=== PATIENT | female | born 1970 | race Caucasian/White ===

== ENCOUNTER 2019-01-21 07:59 | Inpatient (IN) | payer OTHER ==
[~2019-01-21] VITALS: Ht 162.6 cm; Wt 93.4 kg
[~2019-01-21 07:59] MED LIST: FLUT1AER3 IH; MEDR10TA10 PO
[2019-01-21] MEDS ORDERED: LevALBUTEROL HCL 1.25 MG/0.5 ML *CONC.* VIAL.NEB (XOPENEX CONC.) INH ONE ×2 (09:30→09:49)
[2019-01-21] MEDS ORDERED: LR 1,000 ML IV SCH (11:47)
[2019-01-21] MEDS ORDERED: MEPERIDINE HCL/PF 25 MG/ML DISP.SYRIN IVP PRN (12:00)
[2019-01-21] MEDS ORDERED: HYDROmorphone 2 MG/ML VIAL IVP PRN ×2 (12:00)
[2019-01-21] MEDS ORDERED: ONDANSETRON HCL 4 MG/2 ML VIAL IVP PRN (13:45)
[2019-01-21] MEDS ORDERED: ROCURONIUM BROMIDE 10 MG/ML (ZEMURON) ONE (14:05)
[2019-01-21] MEDS ORDERED: NS IRRIG SOLN 1000 ML IR ONE (14:05)
[2019-01-21] MEDS ORDERED: fentaNYL CITRATE 250 MCG/5 ML AMP ONE (14:05)
[2019-01-21] MEDS ORDERED: LR 1,000 ML IV.SOLN IV ONE (14:05)
[2019-01-21] MEDS ORDERED: ONDANSETRON HCL 4 MG/2 ML VIAL ONE ×2 (14:05→14:28)
[2019-01-21] MEDS ORDERED: MIDAZOLAM HCL 5 MG/ML VIAL (VERSED) IV ONE (14:05)
[2019-01-21] MEDS ORDERED: DEXAMETHASONE SOD PHOSPHATE 4 MG/ML VIAL ONE (14:05)
[2019-01-21] MEDS ORDERED: WATER FOR IRRIGATION,STERILE 1,000 ML IRRIG.SOLN IR ONE (14:05)
[2019-01-21] MEDS ORDERED: CEFAZOLIN 2 GM IVPB PREMIX 50 ML IV ONE (14:05)
[2019-01-21] MEDS ORDERED: WATER FOR IRRIGATION,STERILE 4,000 ML IRRIG.SOLN IR ONE (14:05)
[2019-01-21] MEDS ORDERED: PROPOFOL 200MG/ 20ML VIAL (DIPRIVAN) IV ONE (14:05)
[2019-01-21] MEDS ORDERED: KETOROLAC TROMETHAMINE 30 MG VIAL ONE (14:05)
[2019-01-21] MEDS ORDERED: ROPIVACAINE HCL/PF 5 MG/ML 0.5% 30 ML VIAL ONE (14:05)
[2019-01-21] MEDS ORDERED: fentaNYL CITRATE/PF 100 MCG/2 ML AMP ONE (14:05)
[2019-01-21] MEDS ORDERED: SEVOFLURANE 15 MIN GAS INH ONE (14:05)
[2019-01-21] MEDS: HYDROmorphone 1 MG INJ. 1 MG/ML AMPUL IVP PRN ×2 (14:20→14:30)
[2019-01-21] MEDS ORDERED: HYDROmorphone 1 MG INJ. 1 MG/ML AMPUL ONE ×2 (14:29→14:44)
[2019-01-21 15:15] VITALS: BP_SYST 144
[2019-01-21] MEDS: LR 1,000 ML IV SCH ×2 (15:26→19:49)
[2019-01-21] MEDS: IBUPROFEN 800 MG TABLET PO PRN (15:46)
[2019-01-21 16:47] VITALS: BP_SYST 151
[2019-01-21 19:52] VITALS: BP_SYST 143
[2019-01-21] MEDS: OXYCODONE/ACETAMINOPHEN 5-325 TABLET PO PRN (20:58)
[2019-01-21] MEDS: SIMETHICONE 80 MG TAB.CHEW PO PRN (20:58)
[2019-01-21] MEDS ORDERED: TEMAZEPAM 15 MG CAPSULE PO PRN (21:00)
[2019-01-21] MEDS ORDERED: SENNOSIDES/DOCUSATE SODIUM 1 TAB TABLET(SENOKOT-S) PO PRN ×2 (21:00)
[2019-01-22 00:29] VITALS: BP_SYST 155
[2019-01-22] MEDS: OXYCODONE/ACETAMINOPHEN 5-325 TABLET PO PRN ×3 (03:19→22:30)
[2019-01-22] MEDS: SIMETHICONE 80 MG TAB.CHEW PO PRN ×4 (03:20→22:30)
[2019-01-22] MEDS: LR 1,000 ML IV SCH ×2 (03:21→13:00)
[2019-01-22 06:29] LABS: HEMATOCRIT 28.6 % (36-48); HEMOGLOBIN 9.2 g/dL (12.0-16.0)
[2019-01-22 08:00] VITALS: BP_SYST 144
[2019-01-22 12:00] VITALS: BP_SYST 151
[2019-01-22 16:00] VITALS: BP_SYST 153
[2019-01-22 20:00] VITALS: BP_SYST 163
[2019-01-22] MEDS ORDERED: BISACODYL 10 MG/SUPPOSITORY RC ONE ×2 (22:18→22:44)
[2019-01-23 00:11] VITALS: BP_SYST 116
[2019-01-23] MEDS: OXYCODONE/ACETAMINOPHEN 5-325 TABLET PO PRN (02:52)
[2019-01-23] MEDS: BISACODYL 10 MG/SUPPOSITORY RC PRN ×2 (02:52→08:47)
[2019-01-23] MEDS: SIMETHICONE 80 MG TAB.CHEW PO PRN ×4 (02:52→17:12)
[2019-01-23 07:53] VITALS: BP_SYST 144
[2019-01-23] MEDS: IBUPROFEN 800 MG TABLET PO PRN ×2 (08:47→17:12)
[2019-01-23 11:37] VITALS: BP_SYST 142
[2019-01-23 15:49] VITALS: BP_SYST 129
[2019-01-23 17:52] VITALS: BP_SYST 139
== END 2019-01-23 18:25 | disposition home or self-care (01) | DRG 670 ==
LOC: SMU 07:59 → EDSTATUS 10:00 → SMU 15:29
PROVIDERS: ADMIT Obstetrics & Gynecology; ATTEND Urology Female Pelvic Medicine and Reconstructive Surgery
PROC: 0UT90ZZ Resection of Uterus, Open Approach (ICD-10-PCS; 2019-01-21)
PROC: 0T9B40Z Drainage of Bladder with Drainage Device, Percutaneous Endoscopic Approach (ICD-10-PCS; 2019-01-21)
PROC: 0UB50ZZ Excision of Right Fallopian Tube, Open Approach (ICD-10-PCS; 2019-01-21)
PROC: 0UB10ZZ Excision of Left Ovary, Open Approach (ICD-10-PCS; 2019-01-21)
PROC: 0TBB8ZX Excision of Bladder, Via Natural or Artificial Opening Endoscopic, Diagnostic (ICD-10-PCS; principal; 2019-01-21 10:00)
PROC: 0T7D8ZZ Dilation of Urethra, Via Natural or Artificial Opening Endoscopic (ICD-10-PCS; 2019-01-21 10:00)
DX: N99.12 Postprocedural urethral stricture, female (principal); D25.9 Leiomyoma of uterus, unspecified; N84.0 Polyp of corpus uteri; N83.202 Unspecified ovarian cyst, left side; Y83.8 Other surgical procedures as the cause of abnormal reaction of the patient, or of later complication, without mention of misadventure at the time of the procedure; Y82.8 Other medical devices associated with adverse incidents
CPT/HCPCS: 36415; 85018-TC; 86886; 86900; 86901; 87081; 88305; 88307; 94640; C1758; C1769; C2627; J0690; J1100; J1170; J1885; J2250; J2405; J2704; J3010; J7120; J7612